=== PATIENT | female | born 1985 | race Caucasian/White ===

== ENCOUNTER → 2016-09-07 | Outpatient (CLI) | payer BC ==
[~2016-09-07] MED LIST: FIORICET 50-321 EACH PO; KEFLEX PO; NO MEDICATIONS; PHENERGAN25 M1 PO; TOPAMAX50 MG PO; ULTRAM PO; ZOFRAN PO
--- NOTE | ~2016-09-07 | MR112 ---
[facility] A Service of [facility] & [facility] RADIOLOGY TEXT RESULTS PATIENT: GARO QUINTERO LOCATION: [facility] : 83 UNIT #: [id number] AGE: [address]: AVERY BYRD MD SEX: F ORDER DR: [id number] [address] [id number] O MR#: [id number] Acc #: [id number] NAME: GARO QUINTERO : 1985 SEX: F STUDY DATE/TIME: 09/07/2016 10:11 UNIT: [facility] ROOM: STUDY DESCRIPTION: MR Lumbar WWo Contrast Attending Physician: Avery Byrd M.D. Referring Physician: Avery Byrd M.D. Ordering Physician: Avery Byrd M.D. Primary Care Physician: Avery Byrd M.D. MRI CENTER REPORT This report is preliminary unless electronic signature is present. EXAM MRI of the lumbar spine with and without contrast dated 09/07/2016. COMPARISON MRI lumbar spine with and without contrast dated 03/13/2016. HISTORY Increased low back pain since previous MRI March 2016. TECHNIQUE Multisequence multiplanar imaging of the lumbar spine was obtained with and without contrast. 15 mL of MultiHance was administered intravenously. FINDINGS Vertebral body heights and alignment are relatively preserved. Prominent chronic-appearing Schmorl node along the superior endplate of T12 with minimal superior endplate compression deformity and prominent anterior endplate osteophytes at T12. Degenerative disc signal loss is at L4-L5 and L5-S1. Patient has had right francia-laminectomy with a known history of removal of right paramedian large disc extrusion. No acute inflammatory change or postoperative fluid collection is seen in the paraspinal muscles. Retroperitoneum is within normal limits. L1-L2: Unremarkable. L2-L3, L3-L4: Mild disc bulge with minimal bilateral L3-L4 facet hypertrophic change. No canal stenosis or neural foraminal narrowing. L4-L5: Concentric disc bulge with superimposed emebr-vz-txdw central moderate protrusion extending towards bilateral subarticular regions. Mkdi-pd-ujnrqujp canal stenosis is seen with mild inferior bilateral neural foraminal encroachment without nerve impingement. Mild bilateral facet changes. Stable. [facility]. [facility] A Service of [facility] RADIOLOGY TEXT RESULTS PATIENT: GARO QUINTERO LOCATION: [facility] : 83 UNIT #: [id number] AGE: [address]: AVERY BYRD MD SEX: F ORDER DR: L5-S1: There is prominent soft tissue noted in the stnrf-dr-waan subarticular region of the disc. It is most prominent in the center measuring about 1 cm in height. Portions of it enhances and there is a central part of this lesion which does not appear to enhance as well as it did in the previous study in (series 9, image 4). Correlate with operative note. It touches bilateral S1 nerve roots. The remaining concentric disc bulge, which is slightly prominent in the left foraminal region, is re-demonstrated with mild inferior bilateral neural foraminal encroachment without significant nerve impingement. IMPRESSION 1. Patient has had right francia-laminectomy at L5-S1 level with large enhancing soft tissue in the btzcm-oo-jeba subarticular region of the L5-S1 disc, most prominent in the center. Demonstrated better enhancement of the soft tissue in the prior study when compared to the current study which could also be due to contrast bolus timing. There is some granulation tissue with associated disc herniation in the center cannot be excluded. Correlate with operative note. The soft tissues do not appear to have changed significantly in size in the interval. It touches bilateral S1 nerve roots. 2. Next worst level is L4-L5, which is stable since prior study. Dictated by... Geremias Betancur M.D. THIS IS AN ELECTRONICALLY VERIFIED REPORT Geremias Betancur M.D. at 09/13/2016 11:33 AM CPR/pcl TD: 09/07/2016 21:20 JOB #: [id number] MRI CENTER REPORT Page 1 of 1
== END | disposition home or self-care (01) ==
LOC: SMRI 09:59
DX: M54.5 Low back pain (principal); Z98.890 Other specified postprocedural states
CPT/HCPCS: 72158; A9581